=== PATIENT | female | born 1945 | race African-American/Black ===

== ENCOUNTER 2016-11-22 15:10 | Emergency (ER) | payer OTHER ==
--- NOTE | ~2016-11-22 | CR141 ---
[facility] A Service of [facility] RADIOLOGY TEXT RESULTS PATIENT: BETTIE REVELES LOCATION: [facility] : 43 UNIT #: [id number] AGE: [address]: Hilary Marroquin SEX: F ORDER DR: [id number] [facility]. [place], [place] [address] [id number] E MR#: [id number] Acc #: [id number] NAME: BETTIE REVELES : 1945 SEX: F STUDY DATE/TIME: 11/22/2016 15:49 UNIT: [place] ROOM: STUDY DESCRIPTION: CR Hand Min 3 Views Lt Attending Physician: Hilary Marroquin Pa-C Ordering Physician: Hilary Marroquin Pa-C Primary Care Physician: Wally Myers M.D. MEDICAL IMAGING REPORT This report is preliminary unless electronic signature is present EXAM Left hand 11/22/2016 HISTORY 71-year-old female with left hand pain and swelling for 2 days. No specific injury. COMPARISON STUDIES None. FINDINGS 3 views of the left hand demonstrate diffuse bony demineralization. No evidence of a displaced fracture or dislocation. There are advanced degenerative changes noted throughout the wrist with moderate degenerative changes of the interphalangeal joints. Soft tissues are unremarkable. IMPRESSION 1. Osteopenia. No evidence of a displaced fracture or dislocation. 2. Advanced arthrosis throughout the wrist. Moderate arthrosis of the interphalangeal joints. Dictated by... Ranjan Ponce M.D. THIS IS AN ELECTRONICALLY VERIFIED REPORT Ranjan Ponce M.D. at 11/23/2016 9:05 AM ELIZABETH/yvon TD: 11/22/2016 20:17 JOB #: [id number] [facility] A Service of [facility] RADIOLOGY TEXT RESULTS PATIENT: BETTIE REVELES LOCATION: [facility] : 43 UNIT #: [id number] AGE: [address]: Hilary Marroquin SEX: F ORDER DR: MEDICAL IMAGING REPORT Page 1 of 1 COPY
[~2016-11-22 15:10] MED LIST: ASPIRIN81 M2 PO; COLACE; DIABETA5 M1 PO; ENBREL50 MG/ML PO; GLUCOPHAGE XR500 MG; GLUCOPHAGE500 M1 PO; GLYNASE; LISINOPRIL; MULTI-VITAMIN1 TAB; VITAMIN D31000 UNI1 PO; ZOCOR20 MG PO
== END 2016-11-22 16:52 | disposition home or self-care (01) ==
LOC: CFTX 15:10 → CED 15:10 → CFTX 15:48
DX: M13.832 Other specified arthritis, left wrist (principal); E11.9 Type 2 diabetes mellitus without complications; I10 Essential (primary) hypertension; E78.5 Hyperlipidemia, unspecified
CPT/HCPCS: 73130; 99283

== ENCOUNTER → 2017-01-07 | Outpatient (CLI) | payer OTHER ==
--- NOTE | ~2017-01-07 | MY27 ---
[facility] A Service of [facility] RADIOLOGY TEXT RESULTS PATIENT: BETTIE REVELES LOCATION: [facility] : 43 UNIT #: [id number] AGE: [address]: ROGERS ALVARADO MD SEX: F ORDER DR: [id number] [facility] [address] [facility]. [place], [place] [address] [id number] O MR#: [id number] Acc #: [id number] NAME: BETTIE REVELES : 1945 SEX: F STUDY DATE/TIME: 01/07/2017 8:56 UNIT: [facility] ROOM: STUDY DESCRIPTION: MY BISHNU SCREEN W/ CAD UNI LT Attending Physician: Rogers Alvarado M.D. Ordering Physician: Rogers Alvarado M.D. Primary Care Physician: Rogers Alvarado M.D. MEDICAL IMAGING REPORT This report is preliminary unless electronic signature is present EXAM Unilateral left digital screening mammogram 01/07/2017 HISTORY 71-year-old woman status post right mastectomy 1997. Adjuvant therapy. Annual screen. COMPARISON Mammograms date to 12/07/2010 with most recent 01/06/2016. FINDINGS Digital imaging of the left breast was completed utilizing screening protocol. Review includes FDA-approved CAD device. Breast parenchyma is fatty replaced and stable. There is no interval occurring mass. There are no suspicious microcalcifications and no architectural deformity. IMPRESSION Negative unilateral left mammogram. Status post right mastectomy. Annual screening recommended. Patients over the age of 40 are entered into a reminder system with target due date for the next mammogram. A result letter will also be sent to the patient. BIRADS: 1 Negative Dictated by... Gavino Leblanc M.D. THIS IS AN ELECTRONICALLY VERIFIED REPORT Gavino Leblanc M.D. at 01/07/2017 12:58 PM KATELYNB/jorge a [facility] A Service of [facility] RADIOLOGY TEXT RESULTS PATIENT: BETTIE REVELES LOCATION: [facility] : 43 UNIT #: [id number] AGE: [address]: ROGERS ALAVRADO MD SEX: F ORDER DR: TD: 01/07/2017 12:20 JOB #: [id number] MEDICAL IMAGING REPORT Page 1 of 1 COPY
== END | disposition home or self-care (01) ==
LOC: CWCC 08:22
DX: Z12.31 Encounter for screening mammogram for malignant neoplasm of breast (principal); Z90.11 Acquired absence of right breast and nipple
CPT/HCPCS: G0202